=== PATIENT | female | born 1970 | race Caucasian/White ===

== ENCOUNTER 2023-09-29 08:18 | Day surgery (SDC) | payer MEDICAID, SELFPAY ==
[2023-09-29 08:40] VITALS: BP 112/88; PULSE 71; RESP 16; TEMP 36.9; O2SAT 99; BMI 25.9
[2023-09-29] MEDS: Lactated Ringers 1,000 ML 15 ML IV (08:54)
--- NOTE | 2023-09-29 09:45 | COLBX_PTH ---
PATHOLOGY RESULTS PATIENT: DAVEY RAMOS LOC: EN U#:[id number] AGE/SX: 53/F ROOM: RE09/29/[address]: Dr. Markel Enciso DO : 1970 BED: DIS: 09/29/2023 SPEC #: [id number] RECD: 09/29/23 10:54 STATUS: KASANDRA REAugust #: [id number] MARIA DOLORES: 09/29/23 09:[address]: Markel Enciso DEPT: SURGICAL PATHOLOGY RECD BY: Penny Plascencia ENTERED: 09/29/23 11:27 SP TYPE: COLON BX OTHR DR: Yahaira Primary Care Phys Tissues: Cecum, NOS Procedures: Surgery Specimen Level IV HEADER OPERATION: Colonoscopy - open access PRE-OP DIAGNOSIS: Screening TISSUE SUBMITTED: Cecal polyp MICROSCOPIC DIAGNOSIS Cecal polyp, biopsy: Tubular adenoma. AM:frank 09/30/2023 MICROSCOPIC DESCRIPTION Slides are reviewed. GROSS DESCRIPTION Received in fixative is one container labeled with the patient's name and designated cecal polyp. The specimen consists of one irregular fragment of light mckay soft tissue that measures 0.5 x 0.2 x 0.1 cm. The specimen is totally submitted in one cassette. / SJ:frank 09/29/2023 TC:5 CPT: 58633
--- NOTE | 2023-09-29 09:47 | HP.PCM_ITS ---
HPI - General General Date of Admission: 09/29/23 Date of Service: 09/29/23 Chief Complaint: Screening colonoscopy HPI Narrative DAVEY RAMOS, is a 53 F who presents today for screening colonoscopy. She does not have abdominal pain. She denied any cramping or shortness of breath. She does not take any medicines on a daily basis. Overall she is in very good health. [facility] Medical History Cancer H/O Mohs micrographic surgery for skin cancer Non-smoker Home Medications NK 09/14/23 [History Last Taken Unknown] Allergy/AdvReac Type Severity Reaction Status Date / Time amoxicillin Allergy Hives Verified 09/26/23 12:26 Surgical History (Updated 09/26/23 @ 12:32 by Yoli Shi) Hx laparoscopic cholecystectomy Hx of tubal ligation Social History (Updated 09/14/23 @ 08:20 by Chanel An) household members: none current occupational status: employed current occupation: [employer], Aide Smoking Status: Never smoker ROS Review of Systems ROS Unobtainable: other Constitutional Constitutional: Denies fatigue, fever(s), poor appetite, weight gain or weight loss ENT HEENT: Denies mouth lesions Cardiovascular Cardiovascular: Denies abdominal bloating, abdominal edema or abdominal pain Respiratory/Chest Respiratory/Chest: Denies change in mental status, change in phlegm color, chest congestion or chest tightness Gastrointestinal Gastrointestinal: Denies belching, bloating, change in bowel habits, change in stool character, chewing difficulty, coffee ground emesis, constipation, cramping, diarrhea, dyspepsia, dysphagia, early satiety, excessive flatus, fecal incontinence, heartburn, hematemesis, hematochezia, hemorrhoids, loose stools, melena, nausea, odynophagia, rectal bleeding, tenesmus, vomiting or weight changes Genitourinary Genitourinary: Denies abdominal discomfort, burning urination or itching Musculoskeletal Musculoskeletal: Reports as per HPI; Denies muscle weakness or myalgias Integumentary Integumentary: Denies jaundice Neurologic Neurologic: Denies lack of coordination or weakness Psychiatric Psychiatric: Denies confusion, depression, memory loss, mood swings, paranoia or suicidal ideation Endocrine Endocrinology: Denies systems reviewed and no addt'l complaints, except as documented Hematologic/Lymphatic Hematologic/Lymphatic: Denies anemia, easy bleeding, easy bruising or lymphadenopathy Allergic/Immunologic Allergic/Immunologic: Denies systems reviewed and no addt'l complaints, except as documented Vital Signs Vital Signs Vital Signs: 09/29/23 08:40 09/29/23 08:40 Temperature 98.4 F Temperature Source Temporal Pulse Rate 71 Respiratory Rate 16 Respiratory Pattern Normal Blood Pressure 112/88 H Blood Pressure Mean 96 Blood Pressure Source Monitor Blood Pressure Position Semi-Fowlers Blood Pressure Location Left Arm Pulse Ox 99 Oxygen Delivery Method Room Air Weight Weight: 166 lb 0.129 oz Body Mass Index (BMI) 25.9 Physical Exam Const alert General Appearance: cooperative Orientation / Consciousness: oriented to person HEENT hearing grossly normal bilaterally Head and Scalp: normal to inspection Face and Sinus: face symmetric Nose: external nose normal Mouth: oral and palatal mucosa normal Eyes conjunctivae normal General Eye: normal appearance of both eyes Neck full ROM General: normal visual inspection Lymph Lymphatic: no lymphadenopathy noted Chest inspection of chest normal and palpation of chest normal Chest: symmetrical chest wall rise Resp normal respiratory effort Effort and Inspection: able to speak in complete sentences Cardio regular rate GI non-distended Percussion: normal to percussion Rectal Exam: deferred Neuro Speech: speech normal Gait (Neuro): normal gait Assessment & Plan Assessment/Plan (1) Encounter for screening for malignant neoplasm of colon: PLAN: She was explained alternatives, risk, benefits including not withstanding bleeding, infection, sepsis, perforation, need for emergent surgery and . She will have an ASA of 2.
[2023-09-29 10:15] VITALS: BP 112/88; BP 96/50; PULSE 77; RESP 16; TEMP 36.4; O2SAT 100
--- NOTE | 2023-09-29 10:17 | OP.COLON_ITS ---
Patient Name: Lavern Frazier Procedure Date: 09/29/2023 9:48 AM Date of : 1970 Age: 53 Procedure: Colonoscopy Indications: Screening for colorectal malignant neoplasm Providers: Markel Enciso DO Medicines: Monitored Anesthesia Care Patient Profile: This is a 53 year old female. Refer to note in patient chart for documentation of history and physical. Last Colonoscopy: none. The patient's first colonoscopy is today. Complications: No immediate complications. Procedure: Pre-Anesthesia Assessment: - Prior to the procedure, a History and Physical was performed, and patient medications and allergies were reviewed. The patient is competent. The risks and benefits of the procedure and the sedation options and risks were discussed with the patient. All questions were answered and informed consent was obtained. Patient identification and proposed procedure were verified by the physician in the pre-procedure area. Mental Status Examination: alert and oriented. Respiratory Examination: clear to auscultation. CV Examination: normal. Prophylactic Antibiotics: The patient does not require prophylactic antibiotics. Prior Anticoagulants: The patient has taken no anticoagulant or antiplatelet agents. ASA Grade Assessment: II - A patient with mild systemic disease. After reviewing the risks and benefits, the patient was deemed in satisfactory condition to undergo the procedure. The anesthesia plan was to use monitored anesthesia care (MAC). Immediately prior to administration of medications, the patient was re-assessed for adequacy to receive sedatives. The heart rate, respiratory rate, oxygen saturations, blood pressure, adequacy of pulmonary ventilation, and response to care were monitored throughout the procedure. The physical status of the patient was re-assessed after the procedure. After I obtained informed consent, the scope was passed under direct vision. Throughout the procedure, the patient's blood pressure, pulse, and oxygen saturations were monitored continuously. The Colonoscope was introduced through the anus and advanced to the cecum, identified by appendiceal orifice and ileocecal valve. The colonoscopy was performed without difficulty. The patient tolerated the procedure well. The quality of the bowel preparation was adequate. The ileocecal valve, appendiceal orifice, and rectum were photographed. Scope In: 10:00:41 AM Scope Withdrawal Time 0 hours 7 minutes 32 seconds Scope Out: 10:11:59 AM Total Procedure Duration Time 0 hours 11 minutes 18 seconds Findings: The perianal and digital rectal examinations were normal. A few small and large-mouthed diverticula were found in the recto-sigmoid colon and sigmoid colon. A 7 mm polyp was found in the cecum. The polyp was sessile. The polyp was removed with a cold snare. Resection and retrieval were complete. Verification of patient identification for the specimen was done. Estimated blood loss was minimal. Impression: - Diverticulosis in the recto-sigmoid colon and in the sigmoid colon. - One 7 mm polyp in the cecum, removed with a cold snare. Resected and retrieved. Recommendation: - Repeat colonoscopy in 5 years for surveillance. - Continue present medications. Procedure Code(s): --- Professional --- 62226, Colonoscopy, flexible; with removal of tumor(s), polyp(s), or other lesion(s) by snare technique CPT copyright 2021 [employer]. All rights reserved. The codes documented in this report are preliminary and upon jacker feeder review may be revised to meet current compliance requirements. Markel Enciso DO 09/29/2023 10:17:32 AM This report has been signed electronically. Number of Addenda: 0 Note Initiated On: 09/29/2023 9:48 AM
--- NOTE | 2023-09-29 10:18 | OP.CCLET_ITS ---
09/29/2023 Defined Not Re : Colonoscopy procedure for Lavern Frazier Dear Not This procedure was performed on September 29, 2023. My impressions and recommendations are as follows: Impressions : - Diverticulosis in the recto-sigmoid colon and in the sigmoid colon. - One 7 mm polyp in the cecum, removed with a cold snare. Resected and retrieved. Recommendations : - Repeat colonoscopy in 5 years for surveillance. - Continue present medications. My findings are described in the full procedure note, which is enclosed. If I can be of further assistance, please feel free to contact me at . Sincerely, Markel Enciso, 09/29/2023 10:17:32 AM This report has been signed electronically.
[2023-09-29 10:20] VITALS: BP 112/88; BP 96/53; PULSE 65; RESP 16; O2SAT 100
[2023-09-29 10:25] VITALS: BP 112/88; BP 91/52; PULSE 72; RESP 16; TEMP 36.6; O2SAT 100
[2023-09-29 10:46] VITALS: BP 112/88
== END 2023-09-29 10:58 | disposition home or self-care (01) ==
LOC: EN 08:19 → AC 08:21
PROVIDERS: Visit Provider Internal Medicine Gastroenterology
PROC: 0DJD8ZZ Inspection of Lower Intestinal Tract, Via Natural or Artificial Opening Endoscopic (ICD-10-PCS; CPT 45378; principal; 2023-09-29 09:40)
DX: Z12.11 Encounter for screening for malignant neoplasm of colon (principal); K57.30 Diverticulosis of large intestine without perforation or abscess without bleeding; K63.5 Polyp of colon; Z90.49 Acquired absence of other specified parts of digestive tract; Z98.51 Tubal ligation status
CPT/HCPCS: 45385; 88305; J7120; J2405